=== PATIENT | male | born 1945 | race Caucasian/White ===

== ENCOUNTER 2024-06-06 12:53 | Day surgery (SDC) | payer OTHER ==
[~2024-06-06] VITALS: Ht 170.2 cm; Wt 81.7 kg
[~2024-06-06 12:53] MED LIST: ATEN25; ATOR10; Aspir 8181 MG; Atropine Sulfate 0.1 MG/ML 10ML SYR ONE; FOLI1; GERD MED; Glycopyrrolate 0.2 MG/ML 1MLVIAL ONE; HTN MEDS; HYDACE5 PO; HYDCHL25; Lactated Ringer's 1,000 ML IV ONE; Lidocaine 2% 5 ML SDV ONE; Lidocaine HCl/Pf 1% 5 ML VIAL ONE; Methylene Blue 1% 100 MG/10 ML VIAL ONE; OMEP20ER; Ondansetron HCl 2 MG / ML 2ML Vial ONE; PRAV20; PROM25 PO; ePHEDrine Sulfate 50 MG/ML 1ML Injection ONE; propofoL 50 ML IV ONE
[2024-06-06] MEDS ORDERED: EPIPEN0.3 MG/0.3 INH (13:48)
[2024-06-06] MEDS ORDERED: Lactated Ringer's 1,000 ML IV ONE (13:54)
[2024-06-06 15:30] VITALS: BP 132/63
== END 2024-06-06 15:23 | disposition home or self-care (01) ==
LOC: ORSCSDS 12:53
PROVIDERS: Specialist
PROC: 0DB68ZX Excision of Stomach, Via Natural or Artificial Opening Endoscopic, Diagnostic (ICD-10-PCS; principal; 2024-06-06 15:15)
PROC: 0D758ZZ Dilation of Esophagus, Via Natural or Artificial Opening Endoscopic (ICD-10-PCS; principal; 2024-06-06 15:15)
PROC: 0DB58ZX Excision of Esophagus, Via Natural or Artificial Opening Endoscopic, Diagnostic (ICD-10-PCS; principal; 2024-06-06 15:15)
DX: K22.70 Barrett's esophagus without dysplasia (principal); R13.10 Dysphagia, unspecified; K29.70 Gastritis, unspecified, without bleeding; K44.9 Diaphragmatic hernia without obstruction or gangrene; I10 Essential (primary) hypertension; K21.9 Gastro-esophageal reflux disease without esophagitis; J44.9 Chronic obstructive pulmonary disease, unspecified; E78.5 Hyperlipidemia, unspecified; Z87.891 Personal history of nicotine dependence; Z79.82 Long term (current) use of aspirin; Z79.899 Other long term (current) drug therapy
CPT/HCPCS: 88305; 88342; C1769; J0461; J2001; J2405; J2704; J7120; Q9968

== ENCOUNTER 2025-04-26 11:37 | Day surgery (SDC) | payer OTHER ==
[~2025-04-26] VITALS: Ht 170.2 cm; Wt 82.8 kg
[~2025-04-26 11:37] MED LIST changes: -Atropine Sulfate 0.1 MG/ML 10ML SYR ONE; +EPIPEN0.3 MG/0.3 INH; -Glycopyrrolate 0.2 MG/ML 1MLVIAL ONE; -Lactated Ringer's 1,000 ML IV ONE; -Lidocaine 2% 5 ML SDV ONE; -Lidocaine HCl/Pf 1% 5 ML VIAL ONE; -Methylene Blue 1% 100 MG/10 ML VIAL ONE; -Ondansetron HCl 2 MG / ML 2ML Vial ONE; -ePHEDrine Sulfate 50 MG/ML 1ML Injection ONE; -propofoL 50 ML IV ONE
[2025-04-26] MEDS ORDERED: LOSARTAN-HCTZ1 EAC5 (12:05)
[2025-04-26] MEDS ORDERED: IRON18 M1 (12:05)
[2025-04-26] MEDS ORDERED: EZET10 (12:06)
[2025-04-26] MEDS ORDERED: Amlodipine Bes2.5 MG (12:06)
[2025-04-26 13:45] VITALS: BP 117/59
== END 2025-04-26 13:43 | disposition home or self-care (01) ==
LOC: ORSCSDS 11:37
PROVIDERS: Internal Medicine Gastroenterology
PROC: 0DB58ZX Excision of Esophagus, Via Natural or Artificial Opening Endoscopic, Diagnostic (ICD-10-PCS; principal; 2025-04-26 13:15)
PROC: 0DB68ZX Excision of Stomach, Via Natural or Artificial Opening Endoscopic, Diagnostic (ICD-10-PCS; principal; 2025-04-26 13:15)
DX: K22.70 Barrett's esophagus without dysplasia (principal); J44.9 Chronic obstructive pulmonary disease, unspecified; K29.50 Unspecified chronic gastritis without bleeding; I10 Essential (primary) hypertension; Z87.19 Personal history of other diseases of the digestive system; E78.5 Hyperlipidemia, unspecified; Z87.891 Personal history of nicotine dependence; Z79.82 Long term (current) use of aspirin; Z79.899 Other long term (current) drug therapy
CPT/HCPCS: 88305; 88313; 88342; J2704; J7120